=== PATIENT | female | born 1955 ===

== ENCOUNTER 2022-12-01 17:30 | Emergency (ER) | payer SELFPAY ==
[2022-12-01] MEDS ORDERED: hydrALAZINE 20 MG/ML SDV IVPUSH PRN (17:59)
[2022-12-01] MEDS ORDERED: Ketorolac 15 MG/ML SDV IVPUSH ONE (17:59)
[2022-12-01] MEDS ORDERED: Sodium Chloride 0.9% 10 ML Syringe FLUSH PRN (17:59)
[2022-12-01] MEDS ORDERED: Prochlorperazine 10 MG/2 ML SDV IVPUSH ONE (17:59)
[2022-12-01] MEDS ORDERED: Sodium Chloride 0.9% 1,000 ML IV SCH (18:00)
[2022-12-01 18:54] LABS: ESTIMATED GFR 61 mL/min (>60); TROPONIN I HIGH SENSITIVITY 9.7 pg/mL (<=60.3)
[2022-12-01] MEDS ORDERED: hydrALAZINE 10 MG Tab PO STA (19:34)
[2022-12-01 19:47] LABS: CORONAVIRUS COVID-19 NAA NEGATIVE (NEGATIVE)
== END 2022-12-01 19:57 | disposition home or self-care (01) ==
LOC: JP.ED 17:30
DX: G43.919 Migraine, unspecified, intractable, without status migrainosus (principal); I16.0 Hypertensive urgency; I10 Essential (primary) hypertension; Z88.8 Allergy status to other drugs, medicaments and biological substances; Z79.82 Long term (current) use of aspirin; Z79.899 Other long term (current) drug therapy; Z20.822 Contact with and (suspected) exposure to COVID-19
CPT/HCPCS: 0241U; 36415; 80053; 81001; 84484; 85025; 96361; 96374; 96375; 99284; A9270; J0360; J0780; J1885; J7030